=== PATIENT | male | born 1945 | race Caucasian/White ===

== ENCOUNTER 2021-01-06 11:17 | Day surgery (SDC) | payer MEDICARE, OTHER ==
[~2021-01-06] VITALS: Ht 177.8 cm; Wt 100.9 kg
[2021-01-06 11:44] LABS: BASOPHILS 0.3 % (0-2); EOSINOPHILS 1.9 % (0-7); HEMATOCRIT 48.3 % (42.0-54.0); HEMOGLOBIN 16.8 g/dL (13.5-17.5); IMMATURE GRANULOCYTES 0.1 % (0-5); LYMPHOCYTE ABS# 1.96 10x3/uL (1.32-3.57); LYMPHOCYTES 28.6 % (15-50); MCH 30.4 pg (26.0-34.0); MCHC 34.8 g/dL (31.0-37.0); MCV 87.5 fL (80.0-100.0); MEAN PLATELET VOLUME 10.2 fL (7.4-10.4); MONOCYTES 6.9 % (2-11); NEUTROPHIL ABS# 4.26 10x3/uL (1.78-5.38); NEUTROPHILS 62.2 % (40-80); PLATELET COUNT 227 10x3/uL (130-400); RBC 5.52 10x6/uL (4.20-6.10); RDW 14.1 % (11.5-14.5); WBC 6.9 10x3/uL (4.8-10.8)
[2021-01-06 11:54] LABS: ANION GAP 15.4 mmol/L (8-16); CALCIUM 9.3 mg/dL (8.5-10.1); CARBON DIOXIDE 21.5 mmol/L (21.0-32.0); CREATININE - SERUM 1.2 mg/dL (0.6-1.3); POTASSIUM - SERUM 3.9 mmol/L (3.5-5.1)
[2021-01-06 12:00] VITALS: Ht 177.8 cm; Wt 100.9 kg
[2021-01-06] MEDS ORDERED: GLUCOSAMINE HC500 MG (12:06)
[2021-01-06] MEDS ORDERED: MULTI-DAY VITAM1 TAB PO (12:07)
[2021-01-06] MEDS ORDERED: GALZIN50 MG PO (12:07)
[2021-01-06] MEDS ORDERED: ASCORBIC ACID500 MG PO (12:08)
--- NOTE | 2021-01-06 13:54 | NUR ---
1335 IV DC'D. CATHETER TIP INTACT. NO BLEEDING AT SITE. COBAN DRESSING APPLIED. DISCHARGE INSTRUCTIONS WERE REVIEWED WITH PT AND HIS WHO BOTH VOICE UNDERSTANDING OF THESE INSTRUCTIONS.
--- NOTE | 2021-01-08 07:53 | OP ---
PATIENT NAME: OSIRIS BARNES MEDICAL RECORD: [id number] :49 LOCATION:D.OPS ADMISSION DATE: SURGEON: XANDER HALL DO DATE OF OPERATION: 01/06/2021 DICTATING PHYSICIAN: Xander Hall DO PROCEDURE: Colonoscopy. INDICATION FOR PROCEDURE: History of constipation and recent stool DNA base colorectal cancer screening positive test. SCOPE: Olympus video pediatric colonoscope. MEDICATIONS: Propofol 450 mg IV per Anesthesia. WITHDRAWAL TIME: 13 minutes. ESTIMATED BLOOD LOSS: Minimal. COMPLICATIONS: None. FINDINGS: Informed consent was given. The patient was made comfortable with the above medication. After reaching an adequate level of sedation by slow IV push, the patient was placed on his left side. A digital rectal examination was performed and was normal. The endoscope was then advanced under direct visualization through the rectum to the cecum, confirmed by the presence of the appendiceal orifice and ileocecal valve. The endoscope was slowly withdrawn, and the mucosa was carefully examined. The prep quality was good. There were 3 polyps visualized on today's examination. They were all located in the transverse colon. They were benign appearing and sessile and ranged in size from 4-5 mm in diameter. They were all removed using a hot snare. There was evidence of moderate diverticulosis involving the sigmoid colon. Retroflexion was performed in the rectum with visualization of grade I internal hemorrhoids without bleeding. The endoscope was withdrawn from the patient. The patient tolerated the procedure well and there were no complications. IMPRESSION: 1. Three polyps as described above, removed using a hot snare. 2. Moderate diverticulosis of the sigmoid colon. 3. Grade I internal hemorrhoids without bleeding. PLAN AND RECOMMENDATIONS: 1. Discharge home when recovery parameters are met. 2. Follow up biopsy specimen results. 3. High fiber diet. 4. Continue current medications. 5. Recall in 3 years. TRANSINT:[id number] Voice Confirmation ID: [id number] DOCUMENT ID: [id number] OPERATIVE REPORT [id number] OSIRIS BARNES XANDER HALL DO at 0753 CC: [id number] DICTATION DATE: 01/06/21 1255 MOISTURE METER READER: 01/06/212039 [facility] 01/06/21 [facility] [address] [place] [address]
== END 2021-01-06 13:48 | disposition home or self-care (01) ==
LOC: D.OPS 11:17
PROVIDERS: ATTEND Internal Medicine Gastroenterology
DX: K59.00 Constipation, unspecified (principal); K63.5 Polyp of colon; K57.30 Diverticulosis of large intestine without perforation or abscess without bleeding; K64.0 First degree hemorrhoids; R19.5 Other fecal abnormalities

== ENCOUNTER → 2021-01-20 08:22 | Day surgery (SDC) | payer MEDICARE, OTHER ==
[~2021-01-20 08:22] MED LIST: ASCORBIC ACID500 MG PO; GALZIN50 MG PO; GLUCOSAMINE HC500 MG; MULTI-DAY VITAM1 TAB PO
== END | disposition home or self-care (01) ==
LOC: D.SP 08:22
DX: M25.552 Pain in left hip (principal); M16.12 Unilateral primary osteoarthritis, left hip